=== PATIENT | female | born 2000 | race Hispanic/Latino ===

== ENCOUNTER 2022-01-16 08:23 | Emergency (ER) | payer OTHER ==
[~2022-01-16] VITALS: Ht 162.6 cm; Wt 57.5 kg
[2022-01-16 09:41] LABS: BACTERIA, URINE SMALL AMOUNT; HYALINE CAST, URINE NONE SEEN /lpf (0-1); MUCUS, URINE LARGE AMOUNT (NEGATIVE); RBC, URINE NONE SEEN /hpf (0-3); SQUAMOUS EPITHELIAL CELL URINE SMALL AMOUNT /hpf (SMALL AMT)
[2022-01-16] MEDS ORDERED: NAPR-885 PO (12:02)
[2022-01-16 12:09] VITALS: BP 119/71
[2022-01-17 01:23] LABS: GC DNA AMPLIFICATION NEGATIVE (NEGATIVE)
== END 2022-01-16 12:36 | disposition home or self-care (01) ==
LOC: M ED 08:23
DX: M76.892 Other specified enthesopathies of left lower limb, excluding foot (principal); R35.0 Frequency of micturition; Z79.3 Long term (current) use of hormonal contraceptives

== ENCOUNTER 2022-05-15 17:02 | Emergency (ER) | payer OTHER ==
[~2022-05-15] VITALS: Ht 160 cm; Wt 57.8 kg
[~2022-05-15 17:02] MED LIST: NAPR-885 PO
[2022-05-15 17:04] VITALS: BP 126/61
== END 2022-05-15 23:14 | disposition left against medical advice (07) ==
LOC: M ED 17:02
DX: Z53.21 Procedure and treatment not carried out due to patient leaving prior to being seen by health care provider (principal)

== ENCOUNTER 2024-02-02 02:54 | Emergency (ER) | payer OTHER ==
[~2024-02-02] VITALS: Ht 157.5 cm; Wt 58.0 kg
[2024-02-02] MEDS: MIDAZOLAM INJ 2MG/2ML VIAL IV STA (03:37)
[2024-02-02] MEDS: NS 1,000 ML IV ONE (03:37)
[2024-02-02 03:55] LABS: ETHYL ALCOHOL (ETHANOL) 0.253 % (0.000-0.010)
[2024-02-02 04:05] LABS: HCG, SERUM QUALITATIVE NEGATIVE (NEGATIVE)
[2024-02-02 06:09] VITALS: TEMP 98.3; O2SAT 100
[2024-02-02 06:12] VITALS: BP 98/63
== END 2024-02-02 06:40 | disposition home or self-care (01) ==
LOC: M ED 02:54
DX: S00.83XA Contusion of other part of head, initial encounter (principal); Y04.8XXA Assault by other bodily force, initial encounter; Y92.410 Unspecified street and highway as the place of occurrence of the external cause; Y93.9 Activity, unspecified; Y99.9 Unspecified external cause status; F10.120 Alcohol abuse with intoxication, uncomplicated; Y90.8 Blood alcohol level of 240 mg/100 ml or more
CPT/HCPCS: 70450; 70486; 71250; 80047; 82077; 84703; 96361; 96374; 99285; J2250